=== PATIENT | female | born 1955 | race Caucasian/White ===

== ENCOUNTER 2023-03-08 09:41 | Observation (INO) | payer OTHER ==
[2023-03-08] MEDS ORDERED: Sodium Chloride 0.9% 1,000 ML IV ONE ×2 (10:27→16:03)
[2023-03-08 10:45] LABS: HEMATOCRIT 27.3 % (36.0-46.0); HEMOGLOBIN 9.3 g/dL (12.0-16.0); MEAN CORPUSCULAR HEMOGLOBIN 31.8 pg (27.0-32.0); MEAN CORPUSCULAR HGB CONC 34.1 g/dL (31.0-37.0); MEAN CORPUSCULAR VOLUME 93.5 fL (80.0-98.0); PLATELET COUNT,PLT 210 K/uL (150-400); RED BLOOD CELL COUNT 2.92 M/uL (4.30-5.90); WHITE BLOOD CELL COUNT,WBC 6.44 K/uL (4.0-11.0)
[2023-03-08 11:13] LABS: A/G RATIO 1.1 (0.9-1.6); ALBUMIN 3.3 g/dL (3.4-5.0); BILIRUBIN TOTAL 0.4 mg/dL (0.2-1.0); CARBON DIOXIDE,CO2 34.1 mmol/L (21.0-32.0); CREATININE 1.3 mg/dL (0.6-1.0); EST CRCL DRUG DOSING (CG) 34.74 mL/min; POTASSIUM,K 3.7 mmol/L (3.5-5.1); PROTEIN TOTAL,TP 6.2 g/dL (6.4-8.2)
[2023-03-08 11:30] LABS: LYMPHOCYTES ABSOLUTE MAN 0.9 (0.6-2.4); LYMPHOCYTES PERCENT MAN 14 % (16.0-40.0); MONOCYTES ABSOLUTE MAN 0.7 (0.0-0.8); MONOCYTES PERCENT MAN 11 % (0.0-15.0); SEG NEUTROPHILS ABSOLUTE MAN 4.8 (1.4-5.7); SEG NEUTROPHILS PERCENT MAN 75 % (48.0-80.0)
[2023-03-08 11:36] LABS: CALCIUM 15.4 mg/dL (8.5-10.1)
[2023-03-08 11:58] LABS: APPEARANCE,URINE CLEAR; BILIRUBIN,URINE NEGATIVE (NEGATIVE); COLOR,URINE YELLOW; GLUCOSE,URINE NEGATIVE (NEGATIVE); KETONES,URINE NEGATIVE (NEGATIVE); LEUKOCYTE ESTERASE,URINE NEGATIVE (NEGATIVE); NITRITE,URINE NEGATIVE (NEGATIVE); OCCULT BLOOD,URINE NEGATIVE (NEGATIVE); PROTEIN,URINE NEGATIVE (NEGATIVE); UROBILINOGEN,URINE 0.2 EU/dL (<2.0)
[2023-03-08] MEDS ORDERED: Iopamidol 755 Mg/ML 100 ML Bottle IVPUSH ONE (13:56)
[2023-03-08] MEDS ORDERED: Morphine 2 MG/ML SYRINGE IVPUSH ONE (14:44)
[2023-03-08] MEDS ORDERED: Ondansetron 4 MG/2 ML SDV IVPUSH ONE (14:45)
[2023-03-08] MEDS ORDERED: Morphine 2 MG/ML SYRINGE IVPUSH PRN (16:54)
[2023-03-08] MEDS ORDERED: Acetaminophen 325 MG Tab PO PRN (16:54)
[2023-03-08] MEDS ORDERED: Polyethylene Glycol 3350 Powder 17 GM Packet PO PRN (16:56)
[2023-03-08] MEDS ORDERED: Sodium Chloride 0.9% 2.5 ML Syringe FLUSH PRN (16:56)
[2023-03-08] MEDS ORDERED: Albuterol/Ipratropium 3.0-0.5 MG/3 ML Neb Soln NEB PRN (16:56)
[2023-03-08] MEDS ORDERED: Sodium Chloride 0.9% 20 ML SDV IV PRN (16:56)
[2023-03-08] MEDS ORDERED: Sodium Chloride 0.9% 10 ML Syringe FLUSH PRN (16:56)
[2023-03-08] MEDS ORDERED: Zoledronic Acid 4 MG in Sodium Chloride 0.9% 100 ML IV ONE (17:00)
[2023-03-08] MEDS: oxyCODONE 5 MG Tab PO SCH ×2 (17:38→21:50)
[2023-03-08] MEDS ORDERED: Calcitonin (Salmon) 200 Units/ML 2 ML MDV SUBCUT ONE (19:05)
[2023-03-08] MEDS: Ondansetron 4 MG/2 ML SDV IVPUSH PRN (23:24)
[2023-03-09] MEDS: oxyCODONE 5 MG Tab PO SCH ×3 (01:10→09:21)
[2023-03-09] MEDS: Sodium Chloride 0.9% 1,000 ML IV SCH ×2 (01:56→06:55)
[2023-03-09] MEDS: Ondansetron 4 MG/2 ML SDV IVPUSH PRN ×2 (04:31→10:35)
[2023-03-09 06:11] LABS: BASOPHILS PERCENT AUTO 0.1 % (0.0-1.5); HEMATOCRIT 27.7 % (36.0-46.0); HEMOGLOBIN 9.3 g/dL (12.0-16.0); LYMPHOCYTES ABSOLUTE AUTO 0.7 K/uL (0.6-2.4); LYMPHOCYTES PERCENT AUTO 10.1 % (16.0-40.0); MEAN CORPUSCULAR HEMOGLOBIN 31.8 pg (27.0-32.0); MEAN CORPUSCULAR HGB CONC 33.6 g/dL (31.0-37.0); MEAN CORPUSCULAR VOLUME 94.9 fL (80.0-98.0); MONOCYTES ABSOLUTE AUTO 0.7 K/uL (0.0-0.8); MONOCYTES PERCENT AUTO 9.4 % (0.0-15.0); NEUTROPHILS ABSOLUTE AUTO 5.9 K/uL (1.4-5.7); NEUTROPHILS PERCENT AUTO 80.4 % (48.0-80.0); PLATELET COUNT,PLT 214 K/uL (150-400); RED BLOOD CELL COUNT 2.92 M/uL (4.30-5.90); WHITE BLOOD CELL COUNT,WBC 7.35 K/uL (4.0-11.0)
[2023-03-09 06:16] LABS: ALBUMIN 3.1 g/dL (3.4-5.0); BILIRUBIN TOTAL 0.3 mg/dL (0.2-1.0); CALCIUM 12.7 mg/dL (8.5-10.1); CARBON DIOXIDE,CO2 28.5 mmol/L (21.0-32.0); CREATININE 1.5 mg/dL (0.6-1.0); EST CRCL DRUG DOSING (CG) 30.11 mL/min; MAGNESIUM 1.3 mg/dL (1.8-2.4); PHOSPHORUS 3.1 mg/dL (2.6-4.7); POTASSIUM,K 3.5 mmol/L (3.5-5.1); PROTEIN TOTAL,TP 6.3 g/dL (6.4-8.2)
[2023-03-09] MEDS ORDERED: Magnesium Oxide 400 MG Tab PO ONE (09:36)
== END 2023-03-09 10:55 | disposition home or self-care (01) ==
LOC: MW.ED 09:41 → MW.MS 16:25
PROVIDERS: ADMIT Internal Medicine; ATTEND Internal Medicine
DX: M48.54XA Collapsed vertebra, not elsewhere classified, thoracic region, initial encounter for fracture (principal); E83.52 Hypercalcemia; M89.9 Disorder of bone, unspecified
CPT/HCPCS: 36415; 71275; 74177; 80053; 81003; 82310; 83735; 84100; 84484; 85025; 93005; 96361; 96372; 96374; 96375; 96376; 99285; A9270; G0378; J0630; J2270; J2405; J7030; Q9967; 72128; 72128-26; 72131; 72131-26; 93010